=== PATIENT | female | born 1970 | race Caucasian/White ===

== ENCOUNTER 2017-08-10 13:24 | Inpatient (IN) | payer OTHER, MEDICAID ==
[~2017-08-10] VITALS: Ht 157.5 cm; Wt 91.2 kg
--- NOTE | 2017-08-10 11:15 | NUR ---
Social Service consult requested by patient's Nurse, Korey Cox , regarding pt. wanting information about medical/medicare services. Pt, addressed concerns about medical limitations and frequency of emergency visits to hospital as it relates to her current financial situation (pt. is receiving medical services). Pt inquired about SW encouraged pt to discuss specific medical services with her medical SW; which pt agreed. In addition, provided pt with the following Medical referrals; [facility], [address] [place] [address]; [facility]. [address] [place] [id number] and [facility] [address] [place] [address]. Pt agreed to contact her medical SW.
[~2017-08-10 13:24] MED LIST: ALBU8.5H2 IH; ALBU8.5H2 INH; FLUT1DIS28 IH; PRED20TA PO
--- NOTE | 2017-08-10 13:30 | NUR ---
AAOX3, C/O SOB x 1 WEEK, GETTING WORSE. NOT RELIEVED WITH SUPPLEMENTAL O2 AND ALBUTEROL NEB. RESP IS EVEN AND UNLABORED WITH NAD NOTED. SKIN IS WARM AND DRY. WHEEZING NOTED ON AUSCULTATION. MARILYN VELAZQUEZ AT BS FOR EVAL.
[2017-08-10] MEDS ORDERED: methylPREDNISolone SOD SUCC 125 MG/2ML VIAL ONE (13:45)
[2017-08-10] MEDS ORDERED: IPRATROPIUM NEB FS 0.5 MG/2.5 ML AMPUL.NEB ONE (13:46)
[2017-08-10] MEDS ORDERED: ALBUTEROL FS 2.5 MG/3 ML VIAL.NEB ONE ×3 (13:46→15:51)
--- NOTE | 2017-08-10 13:50 | NUR ---
BREATHING TREATMENT AT
[2017-08-10] MEDS ORDERED: methylPREDNISolone SOD SUCC 125 MG/2ML VIAL IM ONE (14:00)
[2017-08-10] MEDS ORDERED: IPRATROPIUM NEB FS 0.5 MG/2.5 ML AMPUL.NEB NEB ONE (14:00)
[2017-08-10] MEDS ORDERED: ALBUTEROL FS 2.5 MG/3 ML VIAL.NEB CONTNEB ONE ×3 (14:00→16:00)
--- NOTE | 2017-08-10 14:55 | NUR ---
MARILYN VELAZQUEZ AT BS FOR AN UPDATE AND RE-EVAL.
[2017-08-10] MEDS ORDERED: Magnesium 1GM/D5W 100ML PREMIX 200 ML IV ONE ×2 (14:56→15:10)
[2017-08-10] MEDS ORDERED: TERBUTALINE SULFATE 1 MG/ML VIAL SQ ONE (15:00)
[2017-08-10] MEDS ORDERED: TERBUTALINE SULFATE 1 MG/ML VIAL ONE (15:09)
--- NOTE | 2017-08-10 15:55 | NUR ---
3RD BREATHING TREATMENT AT BS.
--- NOTE | 2017-08-10 17:33 | NUR ---
CALLED [facility], WORD PROCESSOR TECHNICIAN WAS PAGED.
--- NOTE | 2017-08-10 18:14 | NUR ---
[id number] TELE NURSE [place]
--- NOTE | 2017-08-10 18:18 | NUR ---
REPORT GIVEN TO BRIANA LESLIE FOR JEANNE TELE [id number]
[2017-08-10 18:20] LABS: BASOPHILS # (AUTO) 0.1 /CMM (0.0-0.2); BASOPHILS % (AUTO) 0.9 % (0.0-2.0); EOSINOPHILS # (AUTO) 0.1 /CMM (0.0-0.7); EOSINOPHILS % (AUTO) 1.2 % (0.0-6.0); HEMATOCRIT 46 % (33-45); HEMOGLOBIN 15.2 g/dL (11.5-14.8); LYMPHOCYTES # (AUTO) 0.7 /CMM (0.8-4.8); LYMPHOCYTES % (AUTO) 8.4 % (20.0-44.0); MEAN CORPUSCULAR HEMOGLOBIN 27 PG (26.0-33.0); MEAN CORPUSCULAR HGB CONC 33 g/dl (31.0-36.0); MEAN CORPUSCULAR VOLUME 81 fL (82-100); MONOCYTES # (AUTO) 0.1 /CMM (0.1-1.30); MONOCYTES % (AUTO) 0.7 % (2.0-12.0); NEUTROPHILS # (AUTO) 7.5 /CMM (1.8-8.9); NEUTROPHILS % (AUTO) 88.8 % (43.0-81.0); PLATELET COUNT (AUTO) 189 /CMM (150-450); RDW COEFFICIENT OF VARIATION 13.7 (11.5-15.0); RED BLOOD CELL COUNT(AUTO) 5.66 MIL/uL (4.0-5.2); WHITE BLOOD COUNT (AUTO) 8.5 K/uL (4.3-11.0)
[2017-08-10] MEDS ORDERED: CLOT10TR PO (18:28)
[2017-08-10] MEDS ORDERED: IV NS 0.9% 1,000 ML IV PRN (18:34)
[2017-08-10 18:36] LABS: ALBUMIN 3.6 g/dL (3.4-5.0); BILIRUBIN,TOTAL 0.5 mg/dL (0.2-1.0); CREATININE 0.9 mg/dL (0.6-1.3); POTASSIUM 3.6 mmol/L (3.5-5.1); TOTAL PROTEIN, SERUM 7.6 g/dL (6.4-8.2)
[2017-08-10] MEDS ORDERED: INSULIN REGULAR, HUMAN 100 UNIT/ML 3 ML VIAL SQ STA (18:40)
--- NOTE | 2017-08-10 18:41 | NUR ---
POURER METALTOP AND SEAT COVER FITTER NOTE RECEIVED REPORT FROM BRIANA MCMAHON. PATIENT CAME INTO EMERGENCY ROOM FOR SHORTNESS OF BREATH FOR MORE THAN ONE WEEK. PATIENT IS ALERT AND ORIENTED x3. NO PAIN AT THIS TIME. PATIENT HAS SOME WHEEZING NOTED. ABLE TO COMMUNICATE NEEDS. IV ON RIGHT AC 20G IN PLACE. TELE MONITOR-SR/ST-117. HISTORY OF HTN, ASTHMA, CHOLECYSTECTOMY, PE, ANGINA, AND KIDNEY STONES. LIVES AT HOME. ALLERGIES TO PCN AND AMPICILLIN. AMBULATORY. CHEST X-RAY NEGATIVE. WILL ENDORSE TO STRUCTURAL DRAFTER NURSE
[2017-08-10 19:00] VITALS: BP 125/56
[2017-08-10] MEDS ORDERED: HYDROCODONE/APAP 5/325MG 1 EACH TABLET PO PRN (19:00)
[2017-08-10] MEDS ORDERED: IV NS 0.9% 500 ML BAG IV ONE (19:00)
[2017-08-10] MEDS ORDERED: ACETAMINOPHEN 325 MG TABLET PO PRN (19:00)
[2017-08-10] MEDS ORDERED: ZOLPIDEM TARTRATE 5 MG TABLET PO PRN (19:00)
[2017-08-10] MEDS ORDERED: methylPREDNISolone SOD SUCC 125 MG/2ML VIAL IV SCH (19:00)
[2017-08-10] MEDS ORDERED: Z GUARD REMEDY 2 OZ OINT TP PRN (19:00)
[2017-08-10] MEDS ORDERED: MAG HYDROX/AL HYDROX/SIMETH 30 ML UDC PO PRN (19:00)
[2017-08-10] MEDS ORDERED: INSULIN DETEMIR 100 UNIT/ML CARTRIDGE SQ ONE ×2 (19:00→23:30)
[2017-08-10] MEDS ORDERED: *INSULIN REGULAR(HUMULIN R)HUM 100 UNIT/ML VIAL SQ PRN (19:00)
[2017-08-10] MEDS ORDERED: DEXTROSE 50%-WATER 50 ML DISP.SYRIN IV PRN ×2 (19:00→23:30)
[2017-08-10] MEDS ORDERED: INSULIN REGULAR, HUMAN 100 UNIT/ML 3 ML VIAL SQ PRN (19:00)
[2017-08-10] MEDS ORDERED: MAGNESIUM HYDROXIDE 30 ML UDC PO PRN (19:00)
[2017-08-10] MEDS ORDERED: ALBUTEROL SULFATE 8 GM HFA.AER.AD IH SCH ×2 (19:00)
[2017-08-10] MEDS ORDERED: ONDANSETRON HCL/PF 4 MG/2 ML VIAL IVP PRN (19:00)
[2017-08-10] MEDS: IPRATROPIUM NEB FS 0.5 MG/2.5 ML AMPUL.NEB NEB SCH (19:27)
[2017-08-10] MEDS: ALBUTEROL FS 2.5 MG/0.5 ML VIAL.NEB NEB SCH (19:27)
--- NOTE | 2017-08-10 19:30 | NUR ---
DAMPER FITTER NOTE RECEIVED PATIENT AWAKE ALERT AND ORIENTED IN BED. NO RESPIRATORY DISTRESS AT THIS TIME. RECEIVING 2L O2 VIA NASAL CANNULA. dENIES ANY PAIN AT THIS TIME. RECEIVING FLUIDS ORDERED. BLOOD SUGAR AT THIS TIME IS 451. MD AWARE. LEVEMIR AND REGULAR INSULIN ADMINISTERED ORDERED. PATIENT TOLERATED WELL. IV SITE INTACT, WITH NO REDNESS OR INFILTRATION NOTED. BED LOCKED AND IN LOWEST POSITION. SIDE RAILS UP, CALL LIGHT WITHIN REACH. WILL CONTINUE TO MONITOR.
[2017-08-10 20:00] VITALS: BP 125/56
[2017-08-10] MEDS: BLOOD SUGAR DIAGNOSTIC 1 EACH STRIP VI SCH ×2 (20:03→22:42)
[2017-08-10] MEDS: IV NS 0.9% 1,000 ML IV PRN (21:28)
--- NOTE | 2017-08-10 22:46 | NUR ---
INTERNATIONAL MARKETING MANAGER NOTE REPORT GIVEN TO BRIANA ACEVEDO FOR JEANNE.
--- NOTE | 2017-08-10 22:50 | NUR ---
rn notes received patient in bed with at bedside. No respiratory distress or shortness of breath, breathing even and unlabored. no complaint of pain. alert and oriented. verbally able to communicate needs. will continue to monitor
--- NOTE | 2017-08-10 23:15 | NUR ---
rn notes dr rene called with orders to check blood sugar level, waited for result 384mg/dl, with new order to give 7units levemir x 1, and collect urine sample and blood draw for lactic acid, noted and carried out
[2017-08-10] MEDS ORDERED: ALPRAZOLAM 0.25 MG TABLET PO PRN (23:30)
[2017-08-10 23:55] LABS: TROPONIN I < 0.017 ng/mL (0.00-0.056)
[2017-08-11] VITALS: BP 116/66
[2017-08-11 00:03] LABS: APPEARANCE,URINE CLEAR (CLEAR); BILIRUBIN,URINE NEGATIVE (NEGATIVE); BLOOD, URINE NEGATIVE Ery/uL (NEGATIVE); COLOR,URINE YELLOW (YELLOW); KETONES,URINE 1+ (NEGATIVE); LEUKOCYTE ESTERASE ,URINE NEGATIVE (NEGATIVE); NITRITE, URINE NEGATIVE (NEGATIVE); PROTEIN,URINE NEGATIVE (NEGATIVE); UGLUCOSE 3+ mg/dL (NEGATIVE); UROBILINOGEN,URINE 0.2 EU/dL (0.2)
[2017-08-11 00:09] LABS: BACTERIA,URINE None seen /HPF (None Seen); RBC,URINE NONE SEEN /HPF (0-2); SQUAMOUS EPITHELIAL CELL,UR Few /HPF (None Seen); WBC,URINE 0-2 /HPF (0-3)
--- NOTE | 2017-08-11 00:10 | NUR ---
rn notes lab called for critical high lactic acid 3.3, called survey questionnaire designer spoke with dr piedra with no new order.
[2017-08-11] MEDS: BLOOD SUGAR DIAGNOSTIC 1 EACH STRIP IN SCH ×6 (01:00→21:20)
[2017-08-11] MEDS: ALBUTEROL FS 2.5 MG/0.5 ML VIAL.NEB NEB SCH ×4 (02:18→19:49)
[2017-08-11] MEDS: IPRATROPIUM NEB FS 0.5 MG/2.5 ML AMPUL.NEB NEB SCH ×4 (02:18→19:50)
[2017-08-11 02:20] LABS: BILIRUBIN,DIRECT 0.2 mg/dL (0.0-0.2)
--- NOTE | 2017-08-11 02:20 | NUR ---
RT PT AWAKE ASK FOR TX BUT ORDER IS Q6 WHILE AWAKE, CHARGED NURSE GLEN OVERIDES THE MEDS TO PULL OUT FROM OMNICELL TO GIVE TX
[2017-08-11 04:00] VITALS: BP_SYST 110; BP_SYST 116; BP_DIAS 65; BP_DIAS 66
[2017-08-11] MEDS: IV NS 0.9% 1,000 ML IV PRN ×3 (06:15→23:03)
--- NOTE | 2017-08-11 06:49 | NUR ---
RN CLOSING NOTES NO SIGNIFICANT CHANGE OF CONDITION. NO DISTRESS NOTED. BLOOD SUGAR AT 0500 322, ADMINISTERED 12 UNITS INSULIN. NO SIGN/SYMPTOM OF HYPERGLYCEMIA. WILL ENDORSE TO AM SHIFT FOR CONTINUITY OF CARE. KEPT CLEAN AND DRY.
--- NOTE | 2017-08-11 07:30 | NUR ---
MS/RN Patient received Patient received from weight shifter. No shortness of breath at this time, 2l oxygen via nasal cannula on and off, saturation 97%. All needs attended, call light within reach, will continue to monitor and ensure safety
[2017-08-11 08:00] VITALS: BP 114/64
[2017-08-11 08:07] VITALS: BP 114/64
[2017-08-11] MEDS: FLUTICASONE/VILANTEROL 1 EACH BLST.W.DEV IH SCH (08:34)
[2017-08-11] MEDS: predniSONE 20 MG TABLET PO SCH (08:34)
--- NOTE | 2017-08-11 09:00 | NUR ---
MS/RN Medications Morning medications administered as ordered. Refused blood sugar to be rechecked, education provided to patient about the importance of monitoring blood sugar but continues to refuse.
--- NOTE | 2017-08-11 09:40 | NUR ---
MS/RN S/B Dr Little Seen by Dr Little - awaiting blood levels from this morning (A1C) as patient newly diagnosed as diabetic. CT chest ordred.
[2017-08-11 09:44] LABS: BASOPHILS % (AUTO) 0.5 % (0.0-2.0); EOSINOPHILS # (AUTO) 0.1 /CMM (0.0-0.7); EOSINOPHILS % (AUTO) 0.9 % (0.0-6.0); HEMATOCRIT 42 % (33-45); HEMOGLOBIN 14.2 g/dL (11.5-14.8); LYMPHOCYTES # (AUTO) 1.7 /CMM (0.8-4.8); LYMPHOCYTES % (AUTO) 16.3 % (20.0-44.0); MEAN CORPUSCULAR HEMOGLOBIN 27 PG (26.0-33.0); MEAN CORPUSCULAR HGB CONC 34 g/dl (31.0-36.0); MEAN CORPUSCULAR VOLUME 81 fL (82-100); MONOCYTES # (AUTO) 0.5 /CMM (0.1-1.30); MONOCYTES % (AUTO) 5.4 % (2.0-12.0); NEUTROPHILS # (AUTO) 7.8 /CMM (1.8-8.9); NEUTROPHILS % (AUTO) 76.9 % (43.0-81.0); PLATELET COUNT (AUTO) 198 /CMM (150-450); RDW COEFFICIENT OF VARIATION 14.6 (11.5-15.0); WHITE BLOOD COUNT (AUTO) 10.1 K/uL (4.3-11.0)
--- NOTE | 2017-08-11 09:50 | NUR ---
MS/career services representative Patient requesting social media community manager, would like more information regarding her medical. Kamla made aware, will be up to see patient.
--- NOTE | 2017-08-11 10:01 | NUR ---
MS/RN CT Scan Patient off floor at this time in readiology for CT scan of chest.
[2017-08-11 10:06] LABS: CALCIUM, SERUM 8.8 mg/dL (8.5-10.1); CREATININE 0.9 mg/dL (0.6-1.3); MAGNESIUM 1.9 mg/dL (1.8-2.4); PHOSPHORUS 3.3 mg/dL (2.5-4.9); POTASSIUM 3.9 mmol/L (3.5-5.1)
--- NOTE | 2017-08-11 10:52 | NUR ---
MS/RN Lactic acid Lactic acid 3.5, Dr Little called, awaiting luciano back.
--- NOTE | 2017-08-11 11:49 | NUR ---
MS/RN 2D Echo 2D echo in progress at bedside.
--- NOTE | 2017-08-11 11:55 | NUR ---
MS/RN Labs Labs reviewed: - lactic acid 3.5 -A1C 9.7
[2017-08-11] MEDS: INSULIN REGULAR, HUMAN 100 UNIT/ML 3 ML VIAL SQ PRN ×3 (12:58→21:24)
--- NOTE | 2017-08-11 15:02 | NUR ---
MS/RN Possible transfer Call received from insurance [email or web address], stated that if patient was not stable for discharge today, transfer would be initiated for patient to go to contracted facility. Jaqui major case detective made aware.
[2017-08-11 16:00] VITALS: BP 141/86
--- NOTE | 2017-08-11 18:13 | NUR ---
MS/RN End note Latest blood sugar 285 - 9 units regular insulin administered. No acute shortness of breath, needing 2l oxygen on and off throughout the day. All needs attended, will endorse to binder lockstitch.
--- NOTE | 2017-08-11 19:30 | NUR ---
RN NOTES PATIENT IS IN BED. ALERT AND ORIENTED X4. FAMILY PRESENT AT BEDSIDE. VS STABLE. RESPIRATIONS EVEN AND UNLABORED. NO RESPIRATORY DISTRESS NOTED. IV ACCESS ON LEFT FA PATENT AND INTACT. INFUSING NS AT 150 ML/HR. NO REDNESS OR INFILTRATION NOTED. BED IN LOW POSITION. SIDE RAILSX2. CALL LIGHT WITHIN EASY REACH. CONTINUE TO MONITOR.
[2017-08-11 20:00] VITALS: BP 127/75
[2017-08-11] MEDS: GUAIFENESIN/D-METHORPHAN HB 5 ML UDC PO PRN (21:25)
--- NOTE | 2017-08-11 21:30 | NUR ---
RN NOTES PATIENT C/O OF COUGH. PER HAKEEM CONTRERAS NP ROBITUSSIN SYRUP 5 ML ADMINISTERED PRN. CONTINUE TO MONITOR.
[2017-08-12] MEDS: BLOOD SUGAR DIAGNOSTIC 1 EACH STRIP IN SCH ×5 (00:57→16:31)
[2017-08-12] MEDS: INSULIN REGULAR, HUMAN 100 UNIT/ML 3 ML VIAL SQ PRN ×4 (00:59→16:32)
[2017-08-12] MEDS: IV NS 0.9% 1,000 ML IV PRN (06:13)
[2017-08-12 06:40] LABS: BASOPHILS % (AUTO) 0.5 % (0.0-2.0); EOSINOPHILS # (AUTO) 0.3 /CMM (0.0-0.7); EOSINOPHILS % (AUTO) 2.8 % (0.0-6.0); HEMATOCRIT 42 % (33-45); LYMPHOCYTES # (AUTO) 2.9 /CMM (0.8-4.8); LYMPHOCYTES % (AUTO) 28.8 % (20.0-44.0); MEAN CORPUSCULAR HEMOGLOBIN 27 PG (26.0-33.0); MEAN CORPUSCULAR HGB CONC 33 g/dl (31.0-36.0); MEAN CORPUSCULAR VOLUME 82 fL (82-100); MONOCYTES # (AUTO) 0.5 /CMM (0.1-1.30); MONOCYTES % (AUTO) 5.3 % (2.0-12.0); NEUTROPHILS # (AUTO) 6.3 /CMM (1.8-8.9); NEUTROPHILS % (AUTO) 62.6 % (43.0-81.0); PLATELET COUNT (AUTO) 173 /CMM (150-450); RDW COEFFICIENT OF VARIATION 14.6 (11.5-15.0); RED BLOOD CELL COUNT(AUTO) 5.11 MIL/uL (4.0-5.2)
[2017-08-12 06:52] LABS: CALCIUM, SERUM 8.3 mg/dL (8.5-10.1); CREATININE 0.6 mg/dL (0.6-1.3); MAGNESIUM 1.8 mg/dL (1.8-2.4); PHOSPHORUS 4.4 mg/dL (2.5-4.9); POTASSIUM 3.7 mmol/L (3.5-5.1)
--- NOTE | 2017-08-12 07:27 | NUR ---
RN NOTES PATIENT IS SLEEPING IN BED. VS STABLE. RESPIRATIONS EVEN AND UNLABORED. NO RESPIRATORY DISTRESS NOTED. IV ACCESS ON LEFT FA PATENT AND INTACT. INFUSING NS AT 150 ML/HR. NO REDNESS OR INFILTRATION NOTED. BED IN LOW POSITION. SIDE RAILSX2. CALL LIGHT WITHIN EASY REACH. WILL ENDORSE TO RN DAY SHIFT FOR CONTINUITY OF CARE.
[2017-08-12 08:00] VITALS: BP 121/76
--- NOTE | 2017-08-12 08:00 | NUR ---
MS RN NOTES PATIENT IN BED RESTING NO SOB OR ACUTE DISTRESS NOTED. PATIENT ALERT, ORIENTED X4 ABLE TO AMBULATE TO BATHROOM. PERIPHERAL IV ON LEFT ARM INTACT PATENT. BED IN LOW LOCKED POSITION. CALL LIGHT WITHIN REACH. WILL CONTINUE TO MONITOR.
[2017-08-12] MEDS: FLUTICASONE/VILANTEROL 1 EACH BLST.W.DEV IH SCH (08:32)
[2017-08-12] MEDS: predniSONE 20 MG TABLET PO SCH (08:32)
[2017-08-12] MEDS: IPRATROPIUM NEB FS 0.5 MG/2.5 ML AMPUL.NEB NEB SCH ×2 (08:48→13:08)
[2017-08-12] MEDS: ALBUTEROL FS 2.5 MG/0.5 ML VIAL.NEB NEB SCH ×2 (08:48→13:08)
[2017-08-12] MEDS: GUAIFENESIN/D-METHORPHAN HB 5 ML UDC PO PRN (09:27)
--- NOTE | 2017-08-12 12:30 | NUR ---
MS RN NOTES PATIENT REFUSES INSULIN SINCE BLOOD SUGAR WAS CHECKED AFTER PATIENT HAD HER LUNCH. EXPLAINED BENEFITS OF INSULIN AND THE IMPORTANCE OF KEEPING BLOOD SUGAR WITHIN RANGE.
--- NOTE | 2017-08-12 14:00 | NUR ---
MS RN NOTES PATIENT SEEN AND EVALUATED BY DR. VILLASEÑOR ORDER TO DISCHARGE HOME. ORDER NOTED AND CARRIED OUT.
[2017-08-12] MEDS ORDERED: METH4TAB16 PO (14:48)
[2017-08-12] MEDS ORDERED: METF850T2 PO (14:48)
--- NOTE | 2017-08-12 15:00 | NUR ---
MS RN NOTES PATIENT DISCHARGED HOME WITH SISTER IN LAW. PATIENT PROVIDED WITH DISCHARGE INSTRUCTIONS,VERBALIZED UNDERSTANDING, PATIENT STATES SHE HAS ANOINTMENT SCHEDULED WITH PCP ON MONDAY ALREADY. EDUCATION PROVIDED ON DIABETES. PROVIDED WITH PRESCRIPTION VERBALIZED UNDERSTANDING OF MEDICATIONS PRESCRIBED. PROVIDED DR. WRIGHT PHONE NUMBER AND ADDRESS. ALL BELONGINGS ACCOUNTED , BELONGING LIST SIGNED. DISCHARGE PROTOCOL FOLLOWED. PERIPHERAL IV REMOVED WITH MINIMAL BLEEDING. ID BAND ALSO REMOVED. ESCORTED TO CAR BY CADDY/CADDIE SUPERVISOR.
[2017-08-12 16:00] VITALS: BP 134/87
== END 2017-08-12 17:30 | disposition home or self-care (01) | DRG 133 ==
LOC: ER 13:30 → TELE 18:29 → MED 08-11 08:38
PROVIDERS: ADMIT Internal Medicine; ATTEND Internal Medicine
DX: J96.01 Acute respiratory failure with hypoxia (principal); E87.2 Acidosis; Z99.81 Dependence on supplemental oxygen; E11.65 Type 2 diabetes mellitus with hyperglycemia; J45.901 Unspecified asthma with (acute) exacerbation; E86.0 Dehydration; I10 Essential (primary) hypertension; Z88.1 Allergy status to other antibiotic agents; Z88.0 Allergy status to penicillin; E66.9 Obesity, unspecified; Z68.36 Body mass index [BMI] 36.0-36.9, adult; E78.5 Hyperlipidemia, unspecified; F41.9 Anxiety disorder, unspecified; M19.90 Unspecified osteoarthritis, unspecified site; Z79.899 Other long term (current) drug therapy; Z82.49 Family history of ischemic heart disease and other diseases of the circulatory system
CPT/HCPCS: 36415; 71010-TC; 71250-TC; 80048-TC; 80053-TC; 80061-TC; 81000-TC; 82248-TC; 82962-TC; 83605-TC; 83735-TC; 83880; 84100-TC; 84484-TC; 85025-TC; 87040-TC; 87081-TC; 93307-TC; A4606; J1815; J2930; J3105; J3475; J7030; J7040; Z7610

== ENCOUNTER 2019-03-26 16:17 | Emergency (ER) | payer MEDICAID, OTHER ==
[~2019-03-26] VITALS: Ht 154.9 cm; Wt 95.3 kg
[~2019-03-26 16:17] MED LIST changes: -ALBU8.5H2 IH; -ALBU8.5H2 INH; +ALBU8.5H8 IH; +ALBU8.5H8 INH; +CLOT10TR PO; +METF-441 PO; +METH4TAB16 PO; -PRED20TA PO
--- NOTE | 2019-03-26 17:00 | NUR ---
PT DENIES DIZZINESS, BLURREY VISION, LIGHTHEADEDNESS TODAY. PT IS ONLY C/O PAIN.
--- NOTE | 2019-03-26 17:00 | NUR ---
PT PRESENTED TO THE ER WITH A C/O HEAD, NECK, BACK, LEFT KNEE AND LEFT SHOULDER/UE PAIN S/P GLF YESTERDAY. PT STATED THAT SHE FELT DIZZY YESTERDAY AND FELL. PT DOES NOT REMEMBER ANYTHING ELSE, BUT WAS FOUND ON THE GROUND BY HER DAUGHTER. PT STATED THAT SHE TOOK IBUPROFEN FOR THE PAIN, WHICH SHE DESCRIBED MINIMAL AT THE TIME. PT STATED THAT SHE WOKE UP THIS MORNING AND THE NECK, BACK AND SHOULDER PAIN WAS TERRIBLE. PT TOOK IBUPROFEN AROUND NOON AND DID NOT HAVE RELIEF. PT IS ON THE MONITOR AND CONTINUOUS PULSE OX.
--- NOTE | 2019-03-26 17:05 | NUR ---
[facility] WAIVER IS IN THE CHART.
--- NOTE | 2019-03-26 17:25 | NUR ---
IV STARTED IN LT WRIST. UNABLE TO DRAW BLOOD FROM IV, BUT LINE IS PATENT AND BENIGN. ABDELI, SHOE IRONER IS AT THE BEDSIDE.
[2019-03-26 17:36] LABS: BASOPHILS # (AUTO) 0.1 /CMM (0.0-0.2); BASOPHILS % (AUTO) 0.7 % (0.0-2.0); EOSINOPHILS % (AUTO) 6.7 % (0.0-6.0); HEMATOCRIT 44 % (33-45); LYMPHOCYTES # (AUTO) 1.7 /CMM (0.8-4.8); LYMPHOCYTES % (AUTO) 21.9 % (20.0-44.0); MEAN CORPUSCULAR HGB CONC 34 g/dl (31.0-36.0); MEAN CORPUSCULAR VOLUME 84 fL (82-100); MONOCYTES # (AUTO) 0.4 /CMM (0.1-1.30); NEUTROPHILS # (AUTO) 5.2 /CMM (1.8-8.9); NEUTROPHILS % (AUTO) 65.7 % (43.0-81.0); PLATELET COUNT (AUTO) 178 /CMM (150-450)
[2019-03-26 17:45] LABS: CALCIUM, SERUM 8.7 mg/dL (8.5-10.1); CARBON DIOXIDE 24 mmol/L (21-32); CHLORIDE 102 mmol/L (98-107); CREATININE 0.6 mg/dL (0.6-1.3); GLUCOSE 308 mg/dL (74-106); POTASSIUM 3.7 mmol/L (3.5-5.1); SODIUM SERUM 136 mmol/L (136-145); UREA NITROGEN, BLOOD 8 mg/dL (7-18)
[2019-03-26 17:51] LABS: ALANINE AMINOTRANSFERASE 47 U/L (12-78); ALBUMIN 3.1 g/dL (3.4-5.0); ALKALINE PHOSPHATASE 151 U/L (46-116); ASPARTATE AMINOTRANSFERASE 28 U/L (15-37); BILIRUBIN,DIRECT 0.1 mg/dL (0.0-0.2); BILIRUBIN,TOTAL 0.6 mg/dL (0.2-1.0); TOTAL PROTEIN, SERUM 6.8 g/dL (6.4-8.2)
--- NOTE | 2019-03-26 18:41 | NUR ---
PT WAS DESATURATING TO 90% ON RA. PT WAS PLACED ON 2L O2 VIA NC. PT THEN STATED THAT SHE IS USUALLY ON 2L O2 VIA NC AT HOME. PT IS NOW SATURATING AT 95%.
--- NOTE | 2019-03-26 19:11 | NUR ---
CALLED PATRICIA RE: XRAY READS
--- NOTE | 2019-03-26 19:50 | NUR ---
IV removed. Catheter intact and site benign. Pressure and 4x4 applied to site. No bleeding noted. Patient discharged to home in stable condition. Written and verbal after care instructions given. Patient verbalizes understanding of instruction. PT REC'D A COPY OF ALL LABS, IMAGING, AND EKG. PT'S DAUGHTER IS DRIVING PT HOME. VSS. NAD NOTED.
[2019-03-26 19:52] VITALS: BP 145/82
== END 2019-03-26 19:53 | disposition home or self-care (01) ==
LOC: ER 16:28
DX: S13.8XXA Sprain of joints and ligaments of other parts of neck, initial encounter (principal); S40.012A Contusion of left shoulder, initial encounter; S80.02XA Contusion of left knee, initial encounter; S09.8XXA Other specified injuries of head, initial encounter; R55 Syncope and collapse; J45.909 Unspecified asthma, uncomplicated; I10 Essential (primary) hypertension; R40.4 Transient alteration of awareness; Z86.711 Personal history of pulmonary embolism; Z90.49 Acquired absence of other specified parts of digestive tract; Z88.0 Allergy status to penicillin; W18.39XA Other fall on same level, initial encounter; Y93.89 Activity, other specified; Y92.89 Other specified places as the place of occurrence of the external cause; Y99.8 Other external cause status
CPT/HCPCS: 36415; 70450-TC; 71045-TC; 72125-TC; 73030-TC; 73060-TC; 73564-TC; 80048-TC; 80076-TC; 84484-TC; 85025-TC

== ENCOUNTER 2021-12-27 17:51 | Emergency (ER) | payer MEDICARE, OTHER ==
[~2021-12-27] VITALS: Ht 154.9 cm; Wt 81.6 kg
--- NOTE | 2021-12-27 20:30 | NUR ---
PT BIBSELF C/O RUQ PAIN x 3 DAYS, ALSO C/O NAUSEA. PT A/OX3. TOLERATING R/A WELL WITH NO SOB. CONNECTED PT TO POX AND MONITOR
--- NOTE | 2021-12-27 20:45 | NUR ---
US TECH AT PT'S BEDSIDE
[2021-12-27 21:09] LABS: BASOPHILS % (AUTO) 0.6 % (0.0-2.0); EOSINOPHILS % (AUTO) 5.2 % (0.0-6.0); HEMATOCRIT 44 % (33-45); HEMOGLOBIN 14.4 g/dL (11.5-14.8); LYMPHOCYTES # (AUTO) 1.5 K/uL (0.8-4.8); LYMPHOCYTES % (AUTO) 19.5 % (20.0-44.0); MEAN CORPUSCULAR HGB CONC 33 g/dl (31.0-36.0); MEAN CORPUSCULAR VOLUME 84 fL (82-100); MONOCYTES # (AUTO) 0.5 K/uL (0.1-1.30); MONOCYTES % (AUTO) 6.2 % (2.0-12.0); NEUTROPHILS # (AUTO) 5.2 K/uL (1.8-8.9); NEUTROPHILS % (AUTO) 68.5 % (43.0-81.0); PLATELET COUNT (AUTO) 210 K/uL (150-450); RED BLOOD CELL COUNT(AUTO) 5.23 MIL/uL (4.0-5.2); WHITE BLOOD COUNT (AUTO) 7.6 K/uL (4.3-11.0)
--- NOTE | 2021-12-27 21:15 | NUR ---
PT RETURNED FROM CT
[2021-12-27 21:17] LABS: CALCIUM, SERUM 9.1 mg/dL (8.5-10.1); CREATININE 0.7 mg/dL (0.6-1.3)
[2021-12-27 21:36] LABS: ALBUMIN 3.4 g/dL (3.4-5.0); BILIRUBIN,DIRECT 0.7 mg/dL (0.0-0.2); BILIRUBIN,TOTAL 1.4 mg/dL (0.2-1.0); POTASSIUM 3.9 mmol/L (3.5-5.1); TOTAL PROTEIN, SERUM 7.9 g/dL (6.4-8.2)
--- NOTE | 2021-12-27 21:50 | NUR ---
URINE COLLECTED AND SENT TO LAB
[2021-12-27 22:45] LABS: BILIRUBIN,URINE MODERATE (NEGATIVE); COLOR,URINE YELLOW (YELLOW); LEUKOCYTE ESTERASE ,URINE TRACE (NEGATIVE); NITRITE, URINE NEGATIVE (NEGATIVE); PH,URINE 5.5 (5.0-8.0); PROTEIN,URINE TRACE mg/dl (NEGATIVE); UGLUCOSE 250 MG/DL mg/dL (NEGATIVE)
--- NOTE | 2021-12-27 23:24 | NUR ---
Patient discharged to home in stable condition. Written and verbal after care instructions given. Patient verbalizes understanding of instruction.
[2021-12-27 23:46] VITALS: BP 127/84
[2021-12-27 23:53] LABS: RBC,URINE 0-2 /HPF (0-2)
[2021-12-27 23:54] LABS: BACTERIA,URINE Moderate /HPF (None Seen)
== END 2021-12-27 23:24 | disposition home or self-care (01) ==
LOC: ER 17:51
DX: R10.12 Left upper quadrant pain (principal); R10.11 Right upper quadrant pain; R74.01 Elevation of levels of liver transaminase levels; R16.2 Hepatomegaly with splenomegaly, not elsewhere classified; R93.5 Abnormal findings on diagnostic imaging of other abdominal regions, including retroperitoneum; I10 Essential (primary) hypertension; J45.909 Unspecified asthma, uncomplicated; Z86.711 Personal history of pulmonary embolism; Z90.89 Acquired absence of other organs; Z88.0 Allergy status to penicillin; Z79.84 Long term (current) use of oral hypoglycemic drugs; Z79.52 Long term (current) use of systemic steroids; Z79.51 Long term (current) use of inhaled steroids; Z79.899 Other long term (current) drug therapy
CPT/HCPCS: 36415; 76705-TC; 80048-TC; 80076-TC; 81001; 83690-TC; 84484-TC; 85025-TC; 87086-TC